=== PATIENT | male | born 1955 | race Caucasian/White ===

== ENCOUNTER 2016-12-03 16:03 | Emergency (ER) | payer BC ==
[~2016-12-03] VITALS: Wt 79.0 kg
[2016-12-03 18:08] LABS: ADD UMIC YES; URINE BILIRUBIN (Dip) NEGATIVE (NEGATIVE); URINE BLOOD (Dip) TRACE (NEGATIVE); URINE COLOR LT. YELLOW (YELLOW); URINE GLUCOSE (Dip) NEGATIVE (NEGATIVE); URINE KETONES (Dip) NEGATIVE (NEGATIVE); URINE LEUKOCYTE ESTERASE (Dip) NEGATIVE (NEGATIVE); URINE NITRITE (Dip) NEGATIVE (NEGATIVE); URINE TOTAL PROTEIN (Dip) NEGATIVE (NEGATIVE); URINE UROBILINOGEN (Dip) 0.2 E.U./dL (0.1-1.0)
[2016-12-03 18:18] LABS: BACTERIA,URINE FEW; MUCUS,URINE FEW; URINE RBCS 0-2 /HPF (0)
--- NOTE | 2016-12-03 18:44 | RADRPT ---
PROCEDURE: Scrotal ultrasound CLINICAL INDICATION: Left testicular pain TECHNIQUE: Scrotal ultrasound was performed with sagittal and transverse views. Kennedy scale and co cinda imaging was performed. Images were reviewed on high resolution PACS monitors. COMPARISON: None available FINDINGS: The right testicle measures 4.0 cm in length. There is normal size and echogenicity and morphology o f the right testicle with normal blood flow. The right epididymis is normal. The left testicle measures 4.3 cm in length. There is normal size and echogenicity and morphology of the left testicle with normal blood flow. The left epididymis demonstrates a 23 x 11 mm cyst and a 7 x 5 mm cyst. Nonspecific small bilateral hydroceles are noted. IMPRESSION: 1. Left epididymal cysts are noted measuring up to 23 mm. 2. No testicular torsion or mass is seen bilaterally. RPTAT: AA .Ron Pedro MD, Date Time Electronically viewed and signed by .Ron Pedro MD, on 12/03/2016 18:43 .R/
[2016-12-03] MEDS ORDERED: IBUP-1542 PO (18:48)
[2016-12-03] MEDS ORDERED: HYDR-906 PO (18:48)
--- NOTE | 2016-12-03 18:51 | ERD ---
ER Documentation Chief Complaint Date/Time DATE: 12/03/16 TIME: 18:49 Chief Complaint LEFT TESTICULAR PAIN X 1 MONTH HPI This is a 61-year-old male who presents complaining of left testicular pain that he has had for 1 month. She denies any dysuria, hematuria, increased urinary frequency, fever, nausea, vomiting, diarrhea, penile discharge. Pain is mild to moderate throbbing in nature nonradiating. Denies trauma. ROS All systems reviewed and are negative except as per history of present illness. Medications Home Meds Active Scripts Hydrocodone/Acetaminophen ([place] 5-325 Tablet) 1 Each Tablet, 1 TAB PO Q6H Y for PAIN, #20 TAB Prov:DUSTY GARCIA PA-C 12/03/16 Ibuprofen* (Motrin*) 600 Mg Tab, 600 MG PO Q6, #30 TAB Prov:DUSTY GARCIA PA-C 12/03/16 PMhx/Soc History of Surgery: No Anesthesia Reaction: No Hx Neurological Disorder: No Hx Respiratory Disorders: No Hx Cardiac Disorders: No Hx Psychiatric Problems: No Hx Miscellaneous Medical Probl: Yes (KNEE PAIN) Hx Alcohol Use: No Hx Substance Use: No Hx Tobacco Use: No FmHx Family History: No diabetes Physical Exam Vitals Vital Signs Date Time Temp Pulse Resp B/P Pulse Ox O2 Delivery O2 Flow Rate FiO2 12/03/16 16:21 98.7 78 18 139/92 99 Physical Exam General: well developed, well nourished, alert, nontoxic, no distress Head: normocephalic, atraumatic Neck: Supple, nontender, no lymphadenopathy, no midline tenderness Respiratory: Clear to auscaultation bilaterally, speaks in full sentences, no use of accesory muscles or labored breathing, no rales, ronchi, or wheezing Cardiovascular: RRR, No murmurs GI: soft, non tender, non distended, negative murphys sign, negative mcburneys point tenderness, no cva tenderness bilaterally, no rebound or guarding : No inguinal lymphadenopathy, bilateral testicles descended and nontender, no erythema or swelling Results 24 hrs Laboratory Tests Test 12/03/16 17:40 Urine Color LT. YELLOW Urine Clarity CLEAR Urine pH 5.5 Urine Specific [place] >=1.030 Urine Ketones NEGATIVE Urine Nitrite NEGATIVE Urine Bilirubin NEGATIVE Urine Urobilinogen 0.2 E.U./dL Urine Leukocyte Esterase NEGATIVE Urine Microscopic RBC 0-2/HPF Urine Microscopic WBC 0-2/HPF Urine Bacteria FEW Urine Mucus FEW Urine Hemoglobin TRACE Urine Glucose NEGATIVE% Urine Total Protein NEGATIVE Procedures/MDM Patient has testicular pain for 1 month. Vital signs are normal. Urine negative for infection but ultrasound of the testicle shows epididymal cyst. Patient was given copies of this we can follow with primary care as well as prescription for ibuprofen and [place] for pain control. Recommended this patient follow up with her primary care doctor within 48 hours or return to the emergency room for any worsening of symptoms. However this time I do believe there is suitable for outpatient management. I answered all their questions and they agreed with the plan and were discharged home. Departure Diagnosis: Primary Impression: Epididymal cyst Condition: Stable DUSTY GARCIA PA-C December 03, 2016 18:51
== END 2016-12-03 19:02 | disposition home or self-care (01) ==
LOC: FTE 16:03
DX: N50.3 Cyst of epididymis (principal)
CPT/HCPCS: 76870; 81001; 81003; 87086